=== PATIENT | male | born 1975 | race Two or more races ===

== ENCOUNTER 2017-09-06 13:51 | Emergency (ER) | payer BC ==
[~2017-09-06] VITALS: Ht 167.6 cm; Wt 86.2 kg
[2017-09-06 14:38] LABS: Basophils # (auto) 0 uL; Basophils % (auto) 0.7 % (0.0-2.0); Eosinophils # (auto) 0 uL; Eosinophils % (auto) 0.3 % (0.0-7.0); Hematocrit 49.7 % (41.0-53.0); Hemoglobin 17.1 g/dL (13.5-17.5); Lymphocytes % (auto) 29.3 % (10.0-50.0); Mean Corpuscular Hemoglobin 33.8 pg (28.0-32.0); Mean Corpuscular Hgb Conc. 34.4 g/dL (32.0-36.0); Mean Corpuscular Volume 98.3 fL (80.0-100.0); Monocytes # (auto) 0.5 uL; Monocytes % (auto) 6.6 % (0.0-12.0); Neutrophils # (auto) 4.4 uL; Neutrophils % (auto) 63.1 % (37.0-80.0); Nucleated Red Blood Cells % 0.2 %; Platelet Count (auto) 281 10^3/uL (140-450); Red Blood Cells 5.06 10^6/uL (4.5-5.90); Red Cell Distribution Width 13.1 % (11.8-14.3)
[2017-09-06 14:55] LABS: Albumin 4.1 g/dL (3.4-5.0); BUN/Creatinine Ratio 20.5; Bilirubin, Total 0.7 mg/dL (0.2-1.0); Calcium 8.9 mg/dL (8.5-10.1); Potassium 3.9 mmol/L (3.5-5.1); Total Protein 8.2 g/dL (6.4-8.2)
[2017-09-06 16:13] LABS: Urine Bacteria NONE SEEN /hpf (None Seen); Urine Blood Negative /uL (Negative); Urine Mucus FEW (None Seen); Urine Specific Gravity 1.014 (1.001-1.035); Urine Sperm PRESENT /hpf (None Seen); Urine WBC 1 /hpf (0 - 3)
[2017-09-06 17:44] VITALS: BP 180/100
== END 2017-09-06 17:03 | disposition home or self-care (01) ==
LOC: ER 13:51
DX: R33.9 Retention of urine, unspecified (principal); F10.239 Alcohol dependence with withdrawal, unspecified; I10 Essential (primary) hypertension; F12.10 Cannabis abuse, uncomplicated
CPT/HCPCS: 36415; 51702; 71045; 80053; 80320; 81001; 85025